=== PATIENT | male | born 1975 | race Caucasian/White ===

== ENCOUNTER 2017-03-06 22:00 | Emergency (ER) | payer SELFPAY ==
[~2017-03-06] VITALS: Ht 182.9 cm; Wt 88.2 kg
[~2017-03-06 22:00] MED LIST: OXYC-302 PO
[2017-03-06 22:05] VITALS: BP 143/82
== END 2017-03-06 23:19 ==
LOC: ED 22:00
DX: Z53.21 Procedure and treatment not carried out due to patient leaving prior to being seen by health care provider (principal)

== ENCOUNTER 2018-08-18 04:17 | Emergency (ER) | payer SELFPAY ==
[~2018-08-18] VITALS: Ht 182.9 cm; Wt 78.1 kg
[2018-08-18 05:12] LABS: MICROSCOPIC INDICATED
[2018-08-18 05:22] LABS: CULTURE INDICATED? NO
[2018-08-18 05:32] LABS: BASOPHILS # (AUTO) 0.04 x10^3/uL (0-0.1); BASOPHILS % (AUTO) 0 % (0-1); EOSINOPHILS # (AUTO) 0.29 x10^3/uL (0-0.4); EOSINOPHILS % (AUTO) 3 % (1-7); LYMPHOCYTES # (AUTO) 2.34 x10^3/uL (1-3.4); LYMPHOCYTES % (AUTO) 22 % (22-44); MD NO; MEAN CORPUSCULAR HEMOGLOBIN 27.6 pg (27.5-34.5); MEAN CORPUSCULAR HGB CONC 33.2 g/dL (33.2-36.2); MEAN CORPUSCULAR VOLUME 83.4 fL (81-97); MEAN PLATELET VOLUME 6.7 fL (7.4-10.4); MONOCYTES # (AUTO) 0.72 x10^3/uL (0.2-0.8); MONOCYTES % (AUTO) 7 % (2-9); NEUTROPHILS % (AUTO) 69 % (42-75); PLATELET COUNT 368 x10^3/uL (130-400); RED BLOOD COUNT 4.13 x10^6/uL (4.38-5.82); RED CELL DISTRIBUTION WIDTH 14.8 % (9.4-14.8)
[2018-08-18 05:41] LABS: ALANINE AMINOTRANSFERASE 67 U/L (12-78); ALBUMIN 2.7 g/dL (3.4-5.0); ANION GAP 6 mmol/L (5-15); CALCIUM 8.4 mg/dL (8.5-10.1); CHLORIDE 106 mmol/L (98-107)
[2018-08-18 05:44] LABS: ALKALINE PHOSPHATASE 130 U/L (45-117); BILIRUBIN,TOTAL 0.2 mg/dL (0.2-1.0); CREATININE 0.93 mg/dL (0.7-1.3); TOTAL PROTEIN 7.8 g/dL (6.4-8.2)
[2018-08-18 05:58] VITALS: BP 149/99
== END 2018-08-18 06:13 | disposition home or self-care (01) ==
LOC: ED 05:58
DX: K52.9 Noninfective gastroenteritis and colitis, unspecified (principal); L02.211 Cutaneous abscess of abdominal wall; F11.10 Opioid abuse, uncomplicated; F15.10 Other stimulant abuse, uncomplicated
CPT/HCPCS: 36415; 80053; 81001; 83690; 85025; 99283

== ENCOUNTER 2019-03-31 16:08 | Inpatient (IN) | payer OTHER ==
[~2019-03-31] VITALS: Ht 182.9 cm; Wt 95.5 kg
[2019-03-31] MEDS ORDERED: OXYcodone/APAP 5/325MG TABLET PO ONE (16:30)
[2019-03-31] MEDS ORDERED: ONDANSETRON 2MG/ML, 2ML IVPush ONE (16:30)
[2019-03-31] MEDS ORDERED: SODIUM CHLORIDE FLUSH 10ML SYR IVF ONE (16:30)
[2019-03-31] MEDS ORDERED: ONDANSETRON 2MG/ML, 2ML ONE (16:44)
[2019-03-31] MEDS ORDERED: MORPHINE SULFATE 4 MG/ML, 1ML ONE ×2 (16:44→18:31)
[2019-03-31 17:00] LABS: BASOPHILS # (AUTO) 0.09 x10^3/uL (0-0.1); BASOPHILS % (AUTO) 1 % (0-1); EOSINOPHILS # (AUTO) 0.31 x10^3/uL (0-0.4); EOSINOPHILS % (AUTO) 2 % (1-7); LYMPHOCYTES % (AUTO) 15 % (22-44); MD NO; MEAN CORPUSCULAR HEMOGLOBIN 29.3 pg (27.5-34.5); MEAN CORPUSCULAR HGB CONC 32.9 g/dL (33.2-36.2); MEAN CORPUSCULAR VOLUME 89.1 fL (81-97); MEAN PLATELET VOLUME 7.6 fL (7.4-10.4); MONOCYTES # (AUTO) 1.37 x10^3/uL (0.2-0.8); MONOCYTES % (AUTO) 9 % (2-9); NEUTROPHILS # (AUTO) 10.99 x10^3/uL (1.8-6.8); NEUTROPHILS % (AUTO) 73 % (42-75); PLATELET COUNT 309 x10^3/uL (130-400); RED BLOOD COUNT 4.68 x10^6/uL (4.38-5.82); RED CELL DISTRIBUTION WIDTH 15.8 % (9.4-14.8)
[2019-03-31] MEDS ORDERED: PHARMACOKINETIC CONSULTATION MC ONE ×2 (17:00→20:00)
[2019-03-31] MEDS ORDERED: SODIUM CHLORIDE 0.9% 1,000ML IVBOLUS ONE (17:00)
[2019-03-31] MEDS ORDERED: VANCOMYCIN PER PHARMACY MC ONE (17:00)
[2019-03-31] MEDS ORDERED: AMPICILLIN/SULBACTAM 3 GM in SODIUM CHLORIDE 0.9% 100 ML IV ONE (17:00)
[2019-03-31 17:13] LABS: ALANINE AMINOTRANSFERASE 22 U/L (12-78); ALBUMIN 3.4 g/dL (3.4-5.0); ANION GAP 7 mmol/L (5-15); CALCIUM 8.9 mg/dL (8.5-10.1); CHLORIDE 108 mmol/L (98-107); CREATININE 0.99 mg/dL (0.7-1.3)
[2019-03-31 17:15] LABS: ALKALINE PHOSPHATASE 137 U/L (45-117); BILIRUBIN,TOTAL 0.2 mg/dL (0.2-1.0); TOTAL PROTEIN 7.5 g/dL (6.4-8.2)
[2019-03-31] MEDS: MORPHINE SULFATE 4 MG/ML, 1ML IVPush PRN ×2 (17:16→18:33)
[2019-03-31] MEDS ORDERED: VANCOMYCIN 1,700 MG in SODIUM CHLORIDE 0.9% 250 ML IV ONE (17:30)
--- NOTE | 2019-03-31 17:59 | NUR ---
REPORT TO MARVIN BUSH.
[2019-03-31] MEDS ORDERED: QUET400T4 PO (18:19)
[2019-03-31] MEDS ORDERED: RISP4TAB34 PO (18:19)
[2019-03-31] MEDS ORDERED: DOCUSATE 100 MG CAPSULE PO PRN (18:30)
[2019-03-31] MEDS ORDERED: ACETAMINOPHEN 325 MG TABLET PO PRN (18:30)
[2019-03-31] MEDS ORDERED: TEMAZEPAM 15 MG CAPSULE PO PRN (18:30)
[2019-03-31] MEDS ORDERED: VANCOMYCIN PER PHARMACY MC PRN (18:30)
[2019-03-31] MEDS ORDERED: ONDANSETRON ODT 4 MG PO PRN (18:30)
[2019-03-31] MEDS ORDERED: DIPHENHYDRAMINE 50 MG/ML, 1ML ONE (18:42)
--- NOTE | 2019-03-31 18:46 | NUR ---
PT WITH SPLOTCHY, NON-RAISED LOCALIZED RASH AFTER MORPHINE ADMINISTRATION. NOTIFIED CHARTERED ACCOUNTANT AND PLACED MORPHINE IN ALLERGY LIST. MEDICATED PATIENT WITH BENADRYL 50MG IVPU.
[2019-03-31] MEDS ORDERED: DIPHENHYDRAMINE 50 MG/ML, 1ML IVPush ONE (19:00)
--- NOTE | 2019-03-31 19:07 | NUR ---
REPORT RECEIVED FROM GEO BUSH.
[2019-03-31 19:44] VITALS: BP 140/87
[2019-03-31] MEDS ORDERED: PHARMACOKINETIC MONITORING MC PRN (20:00)
[2019-03-31] MEDS: HYDROcodone/APAP 5/325 TABLET PO PRN (21:29)
[2019-03-31] MEDS: HEPARIN 5,000 UNITS/ML, 1ML SQ SCH (22:05)
[2019-03-31] MEDS: QUETIAPINE 200 MG TABLET PO SCH (22:05)
[2019-03-31] MEDS: RISPERIDONE 2 MG TABLET PO SCH (22:06)
[2019-03-31] MEDS: VANCOMYCIN 1,600 MG in SODIUM CHLORIDE 0.9% 250 ML IV SCH (22:07)
[2019-04-01 00:33] VITALS: BP 135/89
[2019-04-01] MEDS ORDERED: OMNIPAQUE 350 MG/ML, 150 ML BOTTLE ONE (01:17)
[2019-04-01] MEDS: AMPICILLIN/SULBACTAM 3 GM in SODIUM CHLORIDE 0.9% 100 ML IV SCH ×3 (01:50→20:27)
[2019-04-01] MEDS: HYDROcodone/APAP 5/325 TABLET PO PRN ×5 (01:50→20:25)
[2019-04-01 05:41] LABS: BASOPHILS # (AUTO) 0.03 x10^3/uL (0-0.1); BASOPHILS % (AUTO) 0 % (0-1); EOSINOPHILS # (AUTO) 0.28 x10^3/uL (0-0.4); EOSINOPHILS % (AUTO) 3 % (1-7); LYMPHOCYTES # (AUTO) 1.39 x10^3/uL (1-3.4); LYMPHOCYTES % (AUTO) 13 % (22-44); MD NO; MEAN CORPUSCULAR HEMOGLOBIN 29.5 pg (27.5-34.5); MEAN CORPUSCULAR HGB CONC 32.9 g/dL (33.2-36.2); MEAN CORPUSCULAR VOLUME 89.7 fL (81-97); MEAN PLATELET VOLUME 7.9 fL (7.4-10.4); MONOCYTES # (AUTO) 1.01 x10^3/uL (0.2-0.8); MONOCYTES % (AUTO) 9 % (2-9); NEUTROPHILS # (AUTO) 8.27 x10^3/uL (1.8-6.8); NEUTROPHILS % (AUTO) 75 % (42-75); PLATELET COUNT 239 x10^3/uL (130-400); RED CELL DISTRIBUTION WIDTH 15.8 % (9.4-14.8)
[2019-04-01 05:57] LABS: ANION GAP 6 mmol/L (5-15); CALCIUM 8.4 mg/dL (8.5-10.1); CHLORIDE 108 mmol/L (98-107)
[2019-04-01 05:59] LABS: CREATININE 0.95 mg/dL (0.7-1.3)
[2019-04-01] MEDS: HEPARIN 5,000 UNITS/ML, 1ML SQ SCH ×3 (06:25→21:25)
[2019-04-01 07:20] VITALS: BP 115/77
[2019-04-01] MEDS: VANCOMYCIN 1,600 MG in SODIUM CHLORIDE 0.9% 250 ML IV SCH ×2 (08:59→21:25)
[2019-04-01] MEDS: QUETIAPINE 200 MG TABLET PO SCH ×2 (08:59→21:25)
[2019-04-01 09:17] LABS: HCT (SEDRATE) 38.6 % (39.2-51.8)
[2019-04-01 15:19] VITALS: BP 148/89
[2019-04-01 18:15] VITALS: BP 137/79
[2019-04-01] MEDS: RISPERIDONE 2 MG TABLET PO SCH (20:26)
[2019-04-02] MEDS: HYDROcodone/APAP 5/325 TABLET PO PRN ×2 (00:56→05:48)
[2019-04-02 01:14] VITALS: BP 129/75
[2019-04-02] MEDS: AMPICILLIN/SULBACTAM 3 GM in SODIUM CHLORIDE 0.9% 100 ML IV SCH ×3 (03:43→20:26)
[2019-04-02 05:34] LABS: BASOPHILS # (AUTO) 0.02 x10^3/uL (0-0.1); BASOPHILS % (AUTO) 0 % (0-1); EOSINOPHILS # (AUTO) 0.38 x10^3/uL (0-0.4); EOSINOPHILS % (AUTO) 4 % (1-7); LYMPHOCYTES # (AUTO) 1.73 x10^3/uL (1-3.4); LYMPHOCYTES % (AUTO) 18 % (22-44); MD NO; MEAN CORPUSCULAR HEMOGLOBIN 29.6 pg (27.5-34.5); MEAN CORPUSCULAR HGB CONC 33.1 g/dL (33.2-36.2); MEAN CORPUSCULAR VOLUME 89.6 fL (81-97); MEAN PLATELET VOLUME 7.7 fL (7.4-10.4); MONOCYTES # (AUTO) 0.98 x10^3/uL (0.2-0.8); MONOCYTES % (AUTO) 10 % (2-9); NEUTROPHILS # (AUTO) 6.68 x10^3/uL (1.8-6.8); NEUTROPHILS % (AUTO) 68 % (42-75); PLATELET COUNT 231 x10^3/uL (130-400); RED CELL DISTRIBUTION WIDTH 15.5 % (9.4-14.8)
[2019-04-02 05:35] LABS: ALANINE AMINOTRANSFERASE 15 U/L (12-78); ALBUMIN 2.8 g/dL (3.4-5.0); ANION GAP 5 mmol/L (5-15); CALCIUM 8.7 mg/dL (8.5-10.1); CHLORIDE 109 mmol/L (98-107); CREATININE 0.97 mg/dL (0.7-1.3)
[2019-04-02 05:38] LABS: ALKALINE PHOSPHATASE 102 U/L (45-117); BILIRUBIN,TOTAL 0.3 mg/dL (0.2-1.0); TOTAL PROTEIN 6.7 g/dL (6.4-8.2)
[2019-04-02] MEDS: HEPARIN 5,000 UNITS/ML, 1ML SQ SCH ×3 (05:48→22:05)
[2019-04-02] MEDS: QUETIAPINE 200 MG TABLET PO SCH ×2 (09:11→20:26)
[2019-04-02] MEDS: VANCOMYCIN 1,600 MG in SODIUM CHLORIDE 0.9% 250 ML IV SCH ×2 (09:11→22:05)
[2019-04-02 09:44] VITALS: BP 122/84
[2019-04-02] MEDS: IBUPROFEN 800 MG TABLET PO PRN ×2 (11:59→20:26)
[2019-04-02 13:27] VITALS: BP 143/90
[2019-04-02 19:47] VITALS: BP 137/89
[2019-04-02] MEDS: RISPERIDONE 2 MG TABLET PO SCH (20:26)
[2019-04-03 02:46] VITALS: BP 139/82
[2019-04-03] MEDS: AMPICILLIN/SULBACTAM 3 GM in SODIUM CHLORIDE 0.9% 100 ML IV SCH ×3 (04:19→20:25)
[2019-04-03 05:21] LABS: BASOPHILS # (AUTO) 0.03 x10^3/uL (0-0.1); BASOPHILS % (AUTO) 0 % (0-1); EOSINOPHILS # (AUTO) 0.43 x10^3/uL (0-0.4); EOSINOPHILS % (AUTO) 5 % (1-7); LYMPHOCYTES # (AUTO) 1.55 x10^3/uL (1-3.4); LYMPHOCYTES % (AUTO) 20 % (22-44); MD NO; MEAN CORPUSCULAR HEMOGLOBIN 29.7 pg (27.5-34.5); MEAN CORPUSCULAR HGB CONC 32.9 g/dL (33.2-36.2); MEAN CORPUSCULAR VOLUME 90.2 fL (81-97); MEAN PLATELET VOLUME 7.6 fL (7.4-10.4); MONOCYTES # (AUTO) 0.64 x10^3/uL (0.2-0.8); MONOCYTES % (AUTO) 8 % (2-9); NEUTROPHILS # (AUTO) 5.22 x10^3/uL (1.8-6.8); NEUTROPHILS % (AUTO) 66 % (42-75); PLATELET COUNT 239 x10^3/uL (130-400); RED BLOOD COUNT 4.23 x10^6/uL (4.38-5.82); RED CELL DISTRIBUTION WIDTH 15.6 % (9.4-14.8)
[2019-04-03 05:30] LABS: ALANINE AMINOTRANSFERASE 19 U/L (12-78); ALBUMIN 2.8 g/dL (3.4-5.0); ANION GAP 5 mmol/L (5-15); CALCIUM 8.9 mg/dL (8.5-10.1); CHLORIDE 110 mmol/L (98-107)
[2019-04-03 05:32] LABS: CREATININE 0.95 mg/dL (0.7-1.3)
[2019-04-03 05:33] LABS: ALKALINE PHOSPHATASE 101 U/L (45-117); BILIRUBIN,TOTAL 0.2 mg/dL (0.2-1.0); TOTAL PROTEIN 6.9 g/dL (6.4-8.2)
[2019-04-03] MEDS: IBUPROFEN 800 MG TABLET PO PRN ×2 (06:18→20:24)
[2019-04-03] MEDS: HEPARIN 5,000 UNITS/ML, 1ML SQ SCH ×3 (06:18→22:37)
[2019-04-03 06:48] VITALS: BP 138/84
[2019-04-03] MEDS: VANCOMYCIN 1,600 MG in SODIUM CHLORIDE 0.9% 250 ML IV SCH ×2 (09:06→21:23)
[2019-04-03] MEDS: QUETIAPINE 200 MG TABLET PO SCH ×2 (09:06→20:24)
[2019-04-03] MEDS: HYDROcodone/APAP 5/325 TABLET PO PRN ×2 (12:59→21:35)
[2019-04-03 13:33] VITALS: BP 133/85
[2019-04-03] MEDS: RISPERIDONE 2 MG TABLET PO SCH (20:25)
[2019-04-03 20:53] VITALS: BP 155/87
[2019-04-04 03:02] VITALS: BP 146/84
[2019-04-04] MEDS: AMPICILLIN/SULBACTAM 3 GM in SODIUM CHLORIDE 0.9% 100 ML IV SCH (04:56)
[2019-04-04] MEDS: HEPARIN 5,000 UNITS/ML, 1ML SQ SCH ×4 (06:29→22:58)
[2019-04-04 07:08] VITALS: BP 154/99
[2019-04-04] MEDS: HYDROcodone/APAP 5/325 TABLET PO PRN ×3 (08:31→22:58)
[2019-04-04] MEDS: QUETIAPINE 200 MG TABLET PO SCH ×2 (08:32→21:17)
[2019-04-04] MEDS: VANCOMYCIN 1,600 MG in SODIUM CHLORIDE 0.9% 250 ML IV SCH (08:32)
[2019-04-04] MEDS: IBUPROFEN 800 MG TABLET PO PRN (11:24)
[2019-04-04 13:16] VITALS: BP 145/89
[2019-04-04] MEDS ORDERED: EPINEPHRINE 1 MG/ML, 1ML ONE (18:11)
[2019-04-04] MEDS ORDERED: BUPIVACAINE/PF 0.25% ONE (18:11)
[2019-04-04] MEDS ORDERED: BUPIVACAINE/PF 0.5% ONE (18:11)
[2019-04-04] MEDS ORDERED: FENTANYL PF 100 MCG/2ML ONE ×2 (18:28→20:27)
[2019-04-04] MEDS ORDERED: MIDAZOLAM 1 MG/ML, 2ML ONE (18:28)
[2019-04-04] MEDS ORDERED: LIDOCAINE-MPF 2% ,5ML ONE (18:32)
[2019-04-04] MEDS ORDERED: ONDANSETRON 2MG/ML, 2ML ONE (19:21)
[2019-04-04] MEDS ORDERED: PROPOFOL 10 MG/ML, 20ML ONE (19:21)
[2019-04-04] MEDS ORDERED: DEXAMETHASONE 4 MG/ML, 1ML ONE (19:21)
[2019-04-04] MEDS ORDERED: CEFAZOLIN 1,000 MG ONE (19:21)
[2019-04-04 20:00] VITALS: BP 127/86
[2019-04-04] MEDS ORDERED: ONDANSETRON 2MG/ML, 2ML IV PRN (20:00)
[2019-04-04] MEDS ORDERED: DIAZEPAM 5 MG/ML, 2ML IVPush PRN (20:00)
[2019-04-04] MEDS ORDERED: OXYcodone 5 MG/5 ML ORAL.SOL UDC PO PRN (20:00)
[2019-04-04] MEDS ORDERED: LORazepam 2 MG/ML, 1ML IVPush PRN (20:00)
[2019-04-04] MEDS ORDERED: PROMETHAZINE 25 MG/ML, 1ML IV PRN (20:00)
[2019-04-04] MEDS ORDERED: ACETAMINOPHEN 325 MG TABLET PO PRN (20:00)
[2019-04-04] MEDS ORDERED: PROMETHAZINE 25 MG SUPP PR PRN (20:00)
[2019-04-04] MEDS ORDERED: ONDANSETRON ODT 8 MG PO PRN (20:00)
[2019-04-04] MEDS ORDERED: HYDROmorphone 2 MG/ML, 1ML IVPush PRN (20:00)
[2019-04-04] MEDS ORDERED: FENTANYL PF 100 MCG/2ML IV PRN (20:00)
[2019-04-04] MEDS ORDERED: OXYcodone 5 MG/5 ML ORAL.SOL UDC ONE (20:14)
[2019-04-04 21:00] VITALS: BP 126/81
[2019-04-04] MEDS: RISPERIDONE 2 MG TABLET PO SCH (21:18)
[2019-04-05 00:05] VITALS: BP 142/86
[2019-04-05] MEDS: CEFAZOLIN PMX 1GM/50ML 50 ML IV SCH ×2 (00:49→08:35)
[2019-04-05] MEDS ORDERED: HYDROmorphone 2 MG/ML, 1ML IVPush ONE (01:30)
[2019-04-05] MEDS: HYDROcodone/APAP 5/325 TABLET PO PRN ×2 (04:06→08:35)
[2019-04-05 05:44] LABS: BASOPHILS # (AUTO) 0.03 x10^3/uL (0-0.1); BASOPHILS % (AUTO) 0 % (0-1); EOSINOPHILS # (AUTO) 0.01 x10^3/uL (0-0.4); EOSINOPHILS % (AUTO) 0 % (1-7); LYMPHOCYTES # (AUTO) 0.88 x10^3/uL (1-3.4); LYMPHOCYTES % (AUTO) 10 % (22-44); MD NO; MEAN CORPUSCULAR HEMOGLOBIN 29.1 pg (27.5-34.5); MEAN CORPUSCULAR HGB CONC 32.8 g/dL (33.2-36.2); MEAN CORPUSCULAR VOLUME 88.6 fL (81-97); MEAN PLATELET VOLUME 7.3 fL (7.4-10.4); MONOCYTES # (AUTO) 0.42 x10^3/uL (0.2-0.8); MONOCYTES % (AUTO) 5 % (2-9); NEUTROPHILS # (AUTO) 7.86 x10^3/uL (1.8-6.8); NEUTROPHILS % (AUTO) 86 % (42-75); PLATELET COUNT 268 x10^3/uL (130-400); RED BLOOD COUNT 4.21 x10^6/uL (4.38-5.82); RED CELL DISTRIBUTION WIDTH 15.5 % (9.4-14.8)
[2019-04-05 05:47] LABS: ANION GAP 6 mmol/L (5-15); CALCIUM 8.9 mg/dL (8.5-10.1); CHLORIDE 105 mmol/L (98-107)
[2019-04-05 05:50] LABS: ALANINE AMINOTRANSFERASE 19 U/L (12-78); ALKALINE PHOSPHATASE 97 U/L (45-117); BILIRUBIN,TOTAL 0.2 mg/dL (0.2-1.0); CREATININE 1.15 mg/dL (0.7-1.3); TOTAL PROTEIN 7.3 g/dL (6.4-8.2)
[2019-04-05] MEDS: HEPARIN 5,000 UNITS/ML, 1ML SQ SCH ×2 (06:03→14:57)
[2019-04-05 07:07] VITALS: BP 134/93
[2019-04-05] MEDS: QUETIAPINE 200 MG TABLET PO SCH ×2 (08:35→20:58)
[2019-04-05] MEDS ORDERED: FLUCONAZOLE 400 MG/200 ML 200 ML IV SCH (09:00)
[2019-04-05] MEDS: IBUPROFEN 800 MG TABLET PO PRN ×2 (12:05→20:58)
[2019-04-05] MEDS: OXYcodone/APAP 5/325MG TABLET PO PRN ×2 (12:05→20:58)
[2019-04-05 12:33] VITALS: BP 124/78
[2019-04-05] MEDS ORDERED: PICC FLUSH PROTOCOL XX PRN (15:00)
[2019-04-05] MEDS ORDERED: NYSTATIN 500,000 UNITS/5 ML UDC PO SCH (16:00)
[2019-04-05] MEDS: CEFAZOLIN 2,000 MG in SODIUM CHLORIDE 0.9% 50 ML IV SCH (16:06)
[2019-04-05 19:33] VITALS: BP 158/108
[2019-04-05] MEDS: RISPERIDONE 2 MG TABLET PO SCH (20:58)
[2019-04-05] MEDS: ENALAPRILAT 1.25 MG/ML, 2ML IVPush PRN ×2 (21:39→22:26)
[2019-04-06] MEDS: CEFAZOLIN 2,000 MG in SODIUM CHLORIDE 0.9% 50 ML IV SCH ×3 (00:09→16:34)
[2019-04-06] MEDS: HEPARIN 5,000 UNITS/ML, 1ML SQ SCH ×3 (00:09→16:34)
[2019-04-06 00:23] VITALS: BP 154/108
[2019-04-06] MEDS ORDERED: hydrALAzine 20 MG/ML, 1ML IV ONE (00:30)
[2019-04-06] MEDS: IBUPROFEN 800 MG TABLET PO PRN ×3 (03:43→19:47)
[2019-04-06] MEDS: OXYcodone/APAP 5/325MG TABLET PO PRN ×4 (03:43→21:56)
[2019-04-06 04:12] LABS: BASOPHILS # (AUTO) 0.06 x10^3/uL (0-0.1); BASOPHILS % (AUTO) 1 % (0-1); EOSINOPHILS # (AUTO) 0.26 x10^3/uL (0-0.4); EOSINOPHILS % (AUTO) 3 % (1-7); LYMPHOCYTES # (AUTO) 2.55 x10^3/uL (1-3.4); LYMPHOCYTES % (AUTO) 31 % (22-44); MD NO; MEAN CORPUSCULAR HEMOGLOBIN 28.9 pg (27.5-34.5); MEAN CORPUSCULAR HGB CONC 32.1 g/dL (33.2-36.2); MEAN CORPUSCULAR VOLUME 89.9 fL (81-97); MEAN PLATELET VOLUME 7.4 fL (7.4-10.4); MONOCYTES # (AUTO) 0.67 x10^3/uL (0.2-0.8); MONOCYTES % (AUTO) 8 % (2-9); NEUTROPHILS # (AUTO) 4.78 x10^3/uL (1.8-6.8); NEUTROPHILS % (AUTO) 58 % (42-75); PLATELET COUNT 256 x10^3/uL (130-400); RED BLOOD COUNT 4.33 x10^6/uL (4.38-5.82); RED CELL DISTRIBUTION WIDTH 15.4 % (9.4-14.8)
[2019-04-06 04:19] LABS: ALANINE AMINOTRANSFERASE 19 U/L (12-78); ANION GAP 4 mmol/L (5-15); CALCIUM 8.8 mg/dL (8.5-10.1); CHLORIDE 109 mmol/L (98-107)
[2019-04-06 04:22] LABS: ALKALINE PHOSPHATASE 113 U/L (45-117); BILIRUBIN,TOTAL 0.1 mg/dL (0.2-1.0); CREATININE 1.06 mg/dL (0.7-1.3); TOTAL PROTEIN 7.3 g/dL (6.4-8.2)
[2019-04-06 07:30] VITALS: BP 134/95
[2019-04-06] MEDS: NYSTATIN 500,000 UNITS/5 ML UDC PO SCH ×4 (08:44→21:23)
[2019-04-06] MEDS: QUETIAPINE 200 MG TABLET PO SCH ×2 (08:44→21:23)
[2019-04-06 14:31] VITALS: BP 149/103
[2019-04-06 19:46] VITALS: BP 165/102
[2019-04-06] MEDS: RISPERIDONE 2 MG TABLET PO SCH (21:23)
[2019-04-07] MEDS: HEPARIN 5,000 UNITS/ML, 1ML SQ SCH ×4 (00:04→23:55)
[2019-04-07] MEDS: CEFAZOLIN 2,000 MG in SODIUM CHLORIDE 0.9% 50 ML IV SCH ×4 (00:04→23:55)
[2019-04-07 02:42] VITALS: BP 147/108
[2019-04-07] MEDS: NYSTATIN 500,000 UNITS/5 ML UDC PO SCH ×4 (06:11→23:54)
[2019-04-07] MEDS: OXYcodone/APAP 5/325MG TABLET PO PRN ×4 (06:11→21:41)
[2019-04-07 08:10] VITALS: BP 133/102
[2019-04-07] MEDS: QUETIAPINE 200 MG TABLET PO SCH ×2 (08:25→21:41)
[2019-04-07] MEDS ORDERED: QUET400T4 PO (10:55)
[2019-04-07] MEDS ORDERED: NYST1000 PO (10:58)
[2019-04-07] MEDS ORDERED: OMEP-110 PO (10:59)
[2019-04-07] MEDS ORDERED: IBUP-1223 PO (10:59)
[2019-04-07 13:09] VITALS: BP 128/87
[2019-04-07 19:50] VITALS: BP 140/99
[2019-04-07] MEDS: RISPERIDONE 2 MG TABLET PO SCH (20:43)
[2019-04-08 03:57] VITALS: BP 136/93
[2019-04-08] MEDS: NYSTATIN 500,000 UNITS/5 ML UDC PO SCH ×4 (06:25→21:00)
[2019-04-08] MEDS: OXYcodone/APAP 5/325MG TABLET PO PRN ×3 (06:27→20:55)
[2019-04-08] MEDS: HEPARIN 5,000 UNITS/ML, 1ML SQ SCH ×2 (07:35→15:53)
[2019-04-08] MEDS: QUETIAPINE 200 MG TABLET PO SCH ×2 (07:36→20:54)
[2019-04-08] MEDS: CEFAZOLIN 2,000 MG in SODIUM CHLORIDE 0.9% 50 ML IV SCH ×2 (08:55→15:53)
[2019-04-08 08:57] VITALS: BP 128/98
[2019-04-08 15:47] VITALS: BP 140/105
[2019-04-08 20:35] VITALS: BP 149/95
[2019-04-08] MEDS: RISPERIDONE 2 MG TABLET PO SCH (20:55)
[2019-04-09] MEDS: CEFAZOLIN 2,000 MG in SODIUM CHLORIDE 0.9% 50 ML IV SCH ×3 (00:08→16:55)
[2019-04-09] MEDS: HEPARIN 5,000 UNITS/ML, 1ML SQ SCH ×3 (00:10→16:55)
[2019-04-09 01:06] VITALS: BP 136/91
[2019-04-09] MEDS: NYSTATIN 500,000 UNITS/5 ML UDC PO SCH ×4 (05:38→21:57)
[2019-04-09] MEDS: OXYcodone/APAP 5/325MG TABLET PO PRN ×4 (05:44→18:31)
[2019-04-09 07:32] VITALS: BP 133/92
[2019-04-09] MEDS: QUETIAPINE 200 MG TABLET PO SCH ×2 (07:41→21:57)
[2019-04-09 15:00] VITALS: BP 122/87
[2019-04-09 20:42] VITALS: BP 148/101
[2019-04-09] MEDS: RISPERIDONE 2 MG TABLET PO SCH (21:57)
[2019-04-10] MEDS: HEPARIN 5,000 UNITS/ML, 1ML SQ SCH ×3 (00:53→16:51)
[2019-04-10] MEDS: CEFAZOLIN 2,000 MG in SODIUM CHLORIDE 0.9% 50 ML IV SCH ×3 (00:53→16:56)
[2019-04-10 01:35] VITALS: BP 118/76
[2019-04-10] MEDS: NYSTATIN 500,000 UNITS/5 ML UDC PO SCH ×4 (05:37→21:53)
[2019-04-10] MEDS: OXYcodone/APAP 5/325MG TABLET PO PRN ×3 (05:46→18:14)
[2019-04-10 07:24] VITALS: BP 128/86
[2019-04-10] MEDS: QUETIAPINE 200 MG TABLET PO SCH ×2 (07:45→21:38)
[2019-04-10 12:50] VITALS: BP 127/84
[2019-04-10 19:58] VITALS: BP 134/93
[2019-04-10] MEDS: RISPERIDONE 2 MG TABLET PO SCH (21:38)
[2019-04-11] MEDS: CEFAZOLIN 2,000 MG in SODIUM CHLORIDE 0.9% 50 ML IV SCH ×3 (00:12→16:26)
[2019-04-11] MEDS: HEPARIN 5,000 UNITS/ML, 1ML SQ SCH ×3 (00:12→16:25)
[2019-04-11] MEDS: OXYcodone/APAP 5/325MG TABLET PO PRN ×4 (00:12→21:00)
[2019-04-11 01:49] VITALS: BP 141/85
[2019-04-11] MEDS: NYSTATIN 500,000 UNITS/5 ML UDC PO SCH ×4 (06:10→21:00)
[2019-04-11 07:39] VITALS: BP 132/84
[2019-04-11] MEDS: QUETIAPINE 200 MG TABLET PO SCH ×2 (09:17→21:00)
[2019-04-11 10:54] LABS: BASOPHILS # (AUTO) 0.04 x10^3/uL (0-0.1); BASOPHILS % (AUTO) 1 % (0-1); EOSINOPHILS # (AUTO) 0.32 x10^3/uL (0-0.4); EOSINOPHILS % (AUTO) 5 % (1-7); LYMPHOCYTES # (AUTO) 1.69 x10^3/uL (1-3.4); LYMPHOCYTES % (AUTO) 26 % (22-44); MD NO; MEAN CORPUSCULAR HGB CONC 32.5 g/dL (33.2-36.2); MEAN CORPUSCULAR VOLUME 89.2 fL (81-97); MEAN PLATELET VOLUME 7.1 fL (7.4-10.4); MONOCYTES # (AUTO) 0.62 x10^3/uL (0.2-0.8); MONOCYTES % (AUTO) 10 % (2-9); NEUTROPHILS # (AUTO) 3.72 x10^3/uL (1.8-6.8); NEUTROPHILS % (AUTO) 58 % (42-75); PLATELET COUNT 244 x10^3/uL (130-400); RED BLOOD COUNT 4.57 x10^6/uL (4.38-5.82); RED CELL DISTRIBUTION WIDTH 16.2 % (9.4-14.8)
[2019-04-11 11:04] LABS: ALANINE AMINOTRANSFERASE 54 U/L (12-78); ALBUMIN 3.2 g/dL (3.4-5.0); ANION GAP 7 mmol/L (5-15); C-REACTIVE PROTEIN, QUANT 0.54 mg/dL (0.02-0.49); CHLORIDE 106 mmol/L (98-107); CREATININE 1.14 mg/dL (0.7-1.3)
[2019-04-11 11:07] LABS: ALKALINE PHOSPHATASE 118 U/L (45-117); BILIRUBIN,TOTAL 0.1 mg/dL (0.2-1.0); TOTAL PROTEIN 7.6 g/dL (6.4-8.2)
[2019-04-11] MEDS: IBUPROFEN 800 MG TABLET PO PRN (11:33)
[2019-04-11 12:15] LABS: HCT (SEDRATE) 40.7 % (39.2-51.8)
[2019-04-11 14:37] VITALS: BP 129/94
[2019-04-11 20:37] VITALS: BP 141/90
[2019-04-11] MEDS: RISPERIDONE 2 MG TABLET PO SCH (21:00)
[2019-04-12] MEDS: HEPARIN 5,000 UNITS/ML, 1ML SQ SCH ×3 (00:18→15:14)
[2019-04-12] MEDS: CEFAZOLIN 2,000 MG in SODIUM CHLORIDE 0.9% 50 ML IV SCH ×3 (00:18→15:50)
[2019-04-12 03:00] VITALS: BP 136/81
[2019-04-12] MEDS: NYSTATIN 500,000 UNITS/5 ML UDC PO SCH ×3 (05:40→15:14)
[2019-04-12] MEDS: OXYcodone/APAP 5/325MG TABLET PO PRN ×2 (05:43→11:36)
[2019-04-12 07:46] VITALS: BP 118/78
[2019-04-12] MEDS: IBUPROFEN 800 MG TABLET PO PRN ×2 (08:49→15:50)
[2019-04-12] MEDS: QUETIAPINE 200 MG TABLET PO SCH (08:49)
[2019-04-12] MEDS ORDERED: CEFA2PLA9 IV (11:08)
[2019-04-12 11:37] VITALS: BP_SYST 104; BP_SYST 99; BP_DIAS 65; BP_DIAS 70
[2019-04-12 13:56] VITALS: BP 111/70
[2019-04-12 17:18] VITALS: BP 124/84
== END 2019-04-12 17:40 | disposition home or self-care (01) | DRG 559 ==
LOC: ED 17:25 → EDIP 17:26 → ED 17:39 → 4NOR 19:25
PROVIDERS: ADMIT Internal Medicine; ATTEND Internal Medicine
PROC: 0PSHXZZ Reposition Right Radius, External Approach (ICD-10-PCS; 2019-04-04)
PROC: 0X9G0ZZ Drainage of Right Wrist Region, Open Approach (ICD-10-PCS; 2019-04-04)
PROC: 0RPNX5Z Removal of External Fixation Device from Right Wrist Joint, External Approach (ICD-10-PCS; principal; 2019-04-04 18:30)
PROC: 02HV33Z Insertion of Infusion Device into Superior Vena Cava, Percutaneous Approach (ICD-10-PCS; 2019-04-05)
PROC: B5181ZA Fluoroscopy of Superior Vena Cava using Low Osmolar Contrast, Guidance (ICD-10-PCS; 2019-04-05)
PROC: B548ZZA Ultrasonography of Superior Vena Cava, Guidance (ICD-10-PCS; 2019-04-05)
DX: T84.59XA Infection and inflammatory reaction due to other internal joint prosthesis, initial encounter (principal); A41.9 Sepsis, unspecified organism; S52.501A Unspecified fracture of the lower end of right radius, initial encounter for closed fracture; B37.0 Candidal stomatitis; F20.0 Paranoid schizophrenia; L03.113 Cellulitis of right upper limb; B18.2 Chronic viral hepatitis C; Y83.8 Other surgical procedures as the cause of abnormal reaction of the patient, or of later complication, without mention of misadventure at the time of the procedure; B95.61 Methicillin susceptible Staphylococcus aureus infection as the cause of diseases classified elsewhere; F31.9 Bipolar disorder, unspecified; Z82.3 Family history of stroke; Z82.49 Family history of ischemic heart disease and other diseases of the circulatory system; Z87.891 Personal history of nicotine dependence; Z88.6 Allergy status to analgesic agent; Y92.89 Other specified places as the place of occurrence of the external cause
CPT/HCPCS: 36415; 73090; 73110; 73610; 73650; 76000; 84145; 99285; J3490; S0020; 36573; 80048; 80053; 80202; 83605; 83735; 84100; 85025; 85651; 86140; 87040; 87070; 87075; 87077; 87176; 87186; 87205; 96374; 96375; 96376; G0378; J0171; J0295; J0690; J1100; J1170; J1450; J1644; J2250; J2405; J2704; J3010; J3370; Q9967; C1751; J0360; J1200; J2270; J7030; J7050